=== PATIENT | female | born 1940 ===

== ENCOUNTER 2021-05-18 11:00 | Inpatient (IN) | payer OTHER ==
[~2021-05-18] VITALS: Ht 160 cm; Wt 64.4 kg
[2021-05-18] MEDS ORDERED: COZAAR50 MG PO (16:26)
[2021-05-18] MEDS ORDERED: AMLODIPINE BESY10 MG PO (16:26)
[2021-05-18] MEDS ORDERED: LEVOXYL100 MCG PO (16:27)
[2021-05-18] MEDS ORDERED: METFORMIN HCL500 MG PO (16:28)
[2021-05-18] MEDS ORDERED: TIROSINT112 MCG PO (16:34)
[2021-05-18] MEDS ORDERED: TOPROL XL50 M1 PO (16:34)
[2021-05-19] MEDS ORDERED: VITAMIN D350 MC4 (11:11)
[2021-05-19] MEDS ORDERED: METFORMIN HCL500 M4 (11:11)
[2021-05-19] MEDS ORDERED: FUSION PLUS CA1 EACH (11:11)
[2021-05-19] MEDS ORDERED: SERTRALINE HCL100 MG (11:11)
[2021-05-19] MEDS ORDERED: HYDRODIURIL12.5 MG (11:12)
[2021-05-19] MEDS ORDERED: SIMVASTATIN20 MG (11:12)
[2021-05-19] MEDS ORDERED: PANTOPRAZOLE SO40 MG (11:12)
[2021-05-19] MEDS ORDERED: DOXAZOSIN MESYLA4 MG (11:12)
== END 2021-05-20 11:23 | disposition home or self-care (01) | DRG 747 ==
LOC: EDSTATUS 11:00 → ADM 11:00 → OB/GYN 05-19 08:40 → O/R 05-19 08:40 → OB/GYN 05-19 09:00
PROVIDERS: ADMIT Specialist; ATTEND Specialist
PROC: 0UBMXZZ Excision of Vulva, External Approach (ICD-10-PCS; 2021-05-19)
PROC: 0UTG7ZZ Resection of Vagina, Via Natural or Artificial Opening (ICD-10-PCS; principal; 2021-05-19 09:00)
DX: C52 Malignant neoplasm of vagina (principal); D03.8 Melanoma in situ of other sites; N95.0 Postmenopausal bleeding; E03.9 Hypothyroidism, unspecified; E11.9 Type 2 diabetes mellitus without complications; I10 Essential (primary) hypertension